=== PATIENT | female | born 1985 | race Caucasian/White ===

== ENCOUNTER 2020-08-16 22:21 | Emergency (ER) | payer MEDICAID ==
[~2020-08-16] VITALS: Ht 167.6 cm; Wt 65.0 kg
[2020-08-16 22:24] VITALS: BP 141/107
[2020-08-17] MEDS ORDERED: LORAZEPAM 0.5MG TABLET PO ONE (00:15)
== END 2020-08-17 01:47 | disposition home or self-care (01) ==
LOC: ER 22:21
DX: F41.9 Anxiety disorder, unspecified (principal); F15.10 Other stimulant abuse, uncomplicated; F12.10 Cannabis abuse, uncomplicated; F32.9 Major depressive disorder, single episode, unspecified
CPT/HCPCS: 99283